=== PATIENT | female | born 1935 | race African-American/Black ===

== ENCOUNTER 2023-04-23 03:50 | Emergency (ER) | payer MEDICARE, MEDICAID ==
[~2023-04-23] VITALS: Ht 170.2 cm; Wt 70.0 kg
[~2023-04-23 03:50] MED LIST: APIX5TAB PO; DILT60TA35 PO
[2023-04-23 03:57] VITALS: O2SAT 100
[2023-04-23] MEDS ORDERED: CARBAMIDE PEROXIDE 6.5% OTIC SOLN 15ML EACH EAR ONE (05:45)
[2023-04-23] MEDS ORDERED: IBUPROFEN 600MG TABLET PO ONE (05:45)
[2023-04-23] MEDS ORDERED: CARB-173 EACH EAR (07:31)
[2023-04-23] MEDS ORDERED: IBUP-2029 MT (07:31)
[2023-04-23 08:53] VITALS: BP 128/86; PULSE 79; RESP 20; TEMP 98.7
== END 2023-04-23 08:55 | disposition home or self-care (01) ==
LOC: ER 03:50
DX: S42.301A Unspecified fracture of shaft of humerus, right arm, initial encounter for closed fracture (principal); I10 Essential (primary) hypertension; H61.21 Impacted cerumen, right ear; X58.XXXA Exposure to other specified factors, initial encounter; Y93.89 Activity, other specified; Y92.89 Other specified places as the place of occurrence of the external cause; Y99.8 Other external cause status
CPT/HCPCS: 73060; 93971; 99284; A4565

== ENCOUNTER 2023-06-19 05:51 | Emergency (ER) | payer MEDICARE, MEDICAID ==
[~2023-06-19] VITALS: Ht 171.4 cm; Wt 70.4 kg
[~2023-06-19 05:51] MED LIST changes: +CARB-173 EACH EAR; +IBUP-2029 MT
[2023-06-19 06:00] VITALS: BP 168/83; O2SAT 100
[2023-06-19] MEDS ORDERED: ACETAMINOPHEN 325MG TABLET PO ONE (08:15)
[2023-06-19 09:18] VITALS: PULSE 82; RESP 16; TEMP 97.7
== END 2023-06-19 09:18 | disposition home or self-care (01) ==
LOC: ER 05:51
DX: M25.511 Pain in right shoulder (principal); M25.512 Pain in left shoulder; I10 Essential (primary) hypertension
CPT/HCPCS: 73030; 99283

== ENCOUNTER 2024-05-27 08:16 | Emergency (ER) | payer MEDICARE, MEDICAID ==
[~2024-05-27] VITALS: Ht 162.6 cm; Wt 61.0 kg
[~2024-05-27 08:16] MED LIST changes: -CARB-173 EACH EAR; +DEBROX EACH EAR
[2024-05-27 08:21] VITALS: BP 192/61; PULSE 71; RESP 16; TEMP 97.9; O2SAT 98
[2024-05-27] MEDS ORDERED: LORAZEPAM 0.5MG TABLET PO ONE (09:00)
[2024-05-27 09:29] LABS: CHLORIDE 110 mEq/L (98-107); POTASSIUM 3.7 mEq/L (3.5-5.1); SODIUM 141 mEq/L (136-145)
[2024-05-27 09:30] LABS: CARBON DIOXIDE 25 mEq/L (21-32)
[2024-05-27 09:31] LABS: BASOPHILS % 0.4 % (0.0-2.0); CALCIUM 9.2 mg/dL (8.7-10.4); EOSINOPHILS % 2.6 % (0.0-5.0); HEMATOCRIT. 36.6 % (36.0-48.0); HEMOGLOBIN. 11.9 g/dL (12.0-16.0); INR 1.1; LYMPHOCYTES % 25.7 % (20.0-50.0); MEAN CORPUSCULAR HEMOGLOBIN 29.2 pg (28.0-32.0); MEAN CORPUSCULAR HGB CONC 32.4 g/dL (31.0-37.0); MEAN PLATELET VOLUME 9.2 fl (7.4-10.4); MONOCYTES % 8.6 % (2.0-8.0); NEUTROPHILS % 62.7 % (40.0-76.0); PLATELET 114 x1000/uL (130-400); RED BLOOD CELL COUNT 4.07 mill/uL (4.2-5.4); WHITE BLOOD COUNT 3.9 x1000/uL (4.5-11.0)
[2024-05-27 09:35] LABS: CREATININE 0.8 mg/dL (0.6-1.0); GLUCOSE 91 mg/dL (70-105)
[2024-05-27 09:36] LABS: TROPONIN I HIGH SENSITIVITY 19 ng/L (3.0-34); UREA NITROGEN BLOOD 15 mg/dL (9-23)
[2024-05-27 09:37] LABS: ALANINE AMINOTRANSFERASE 19 IU/L (10-49); ALBUMIN 3.5 g/dL (3.2-4.8); ASPARTATE AMINOTRANSFERASE 33 IU/L (<34)
[2024-05-27 09:38] LABS: BILIRUBIN DIRECT 0.3 mg/dL (<=3.0); PROTEIN TOTAL 7.1 g/dL (6.0-8.3)
[2024-05-27] MEDS: LORAZEPAM 0.5MG TABLET PO NR (10:49)
[2024-05-27 11:13] LABS: TROPONIN I HIGH SENSITIVITY 17 ng/L (3.0-34)
== END 2024-05-27 15:15 | disposition home or self-care (01) ==
LOC: ER 08:29
DX: R10.12 Left upper quadrant pain (principal); I10 Essential (primary) hypertension
CPT/HCPCS: 36415; 71250; 74176; 80048; 80076; 83880; 84484; 85025; 93005; 99284

== ENCOUNTER 2024-05-28 07:01 | Inpatient (IN) | payer MEDICARE, MEDICAID ==
[~2024-05-28] VITALS: Ht 160 cm; Wt 67.6 kg
[2024-05-28 07:12] VITALS: O2SAT 98
[2024-05-28] MEDS: MORPHINE SULFATE 2 MG/ML INJ (NOT FOR IM USE) IV ONE (07:52)
[2024-05-28 08:06] LABS: CHLORIDE 111 mEq/L (98-107); POTASSIUM 3.4 mEq/L (3.5-5.1); SODIUM 143 mEq/L (136-145)
[2024-05-28 08:07] LABS: CALCIUM 9.4 mg/dL (8.7-10.4); CARBON DIOXIDE 25 mEq/L (21-32)
[2024-05-28 08:12] LABS: BASOPHILS % 0.3 % (0.0-2.0); CREATININE 0.9 mg/dL (0.6-1.0); EOSINOPHILS % 1.7 % (0.0-5.0); GLUCOSE 80 mg/dL (70-105); HEMATOCRIT. 38.1 % (36.0-48.0); HEMOGLOBIN. 12.5 g/dL (12.0-16.0); LYMPHOCYTES % 32.6 % (20.0-50.0); MEAN CORPUSCULAR HEMOGLOBIN 29.3 pg (28.0-32.0); MEAN CORPUSCULAR HGB CONC 32.9 g/dL (31.0-37.0); MEAN CORPUSCULAR VOLUME 89.3 fL (81.0-99.0); MEAN PLATELET VOLUME 9.3 fl (7.4-10.4); MONOCYTES % 8.9 % (2.0-8.0); NEUTROPHILS % 56.5 % (40.0-76.0); PLATELET 127 x1000/uL (130-400); RED BLOOD CELL COUNT 4.27 mill/uL (4.2-5.4); RED CELL DISTRIBUTION WIDTH 14.7 % (11.6-14.6); UREA NITROGEN BLOOD 19 mg/dL (9-23); WHITE BLOOD COUNT 4.2 x1000/uL (4.5-11.0)
[2024-05-28 08:13] LABS: TROPONIN I HIGH SENSITIVITY 15 ng/L (3.0-34)
[2024-05-28 08:14] LABS: ALANINE AMINOTRANSFERASE 18 IU/L (10-49); ALBUMIN 3.9 g/dL (3.2-4.8); ASPARTATE AMINOTRANSFERASE 37 IU/L (<34); BILIRUBIN DIRECT 0.4 mg/dL (<=3.0); BILIRUBIN TOTAL 1.2 mg/dL (0.1-1.0); PROTEIN TOTAL 7.5 g/dL (6.0-8.3)
[2024-05-28 08:34] LABS: INR 1.1; PROTHROMBIN TIME 11.9 sec (9.6-11.0)
[2024-05-28] MEDS: NITROGLYCERIN OINT 1GM/INCH UDPKT TD ONE (10:15)
[2024-05-28 10:25] LABS: TROPONIN I HIGH SENSITIVITY 13 ng/L (3.0-34)
[2024-05-28] MEDS: HYDRALAZINE 20MG/ML VIAL IV ONE (11:10)
[2024-05-28 11:50] LABS: CLARITY URINE CLEAR (CLEAR); COLOR URINE YELLOW (YELLOW); GLUCOSE URINE NEGATIVE (NEGATIVE); KETONES URINE TRACE (NEGATIVE); LEUKOCYTE ESTERASE URINE NEGATIVE (NEGATIVE); NITRITE URINE NEGATIVE (NEGATIVE); OCCULT BLOOD URINE NEGATIVE (NEGATIVE); PROTEIN URINE NEGATIVE (NEGATIVE); SPECIFIC GRAVITY URINE 1.049 (1.005-1.030)
[2024-05-28] MEDS ORDERED: ONDANSETRON HCL 4MG/2ML INJ IV PRN (12:15)
[2024-05-28] MEDS ORDERED: LORAZEPAM 0.5MG TABLET PO PRN (12:15)
[2024-05-28] MEDS ORDERED: DOCUSATE SODIUM 100MG CAPSULE PO PRN (12:15)
[2024-05-28] MEDS ORDERED: GUAIFENESIN 200MG/10ML SUGAR FREE UDC PO PRN (12:15)
[2024-05-28] MEDS ORDERED: CLONIDINE 0.1MG TABLET PO PRN (12:15)
[2024-05-28] MEDS ORDERED: IPRATROPIUM/ALBUTEROL 0.5-3(2.5)MG/3ML NEB HHN PRN (12:15)
[2024-05-28] MEDS ORDERED: ENOXAPARIN 40MG/0.4ML SYR SUBCUT SCH (12:15)
[2024-05-28] MEDS ORDERED: ACETAMINOPHEN 325MG TABLET PO PRN ×2 (12:15)
[2024-05-28] MEDS: POTASSIUM CHLORIDE 20MEQ/PACKET PO NR (13:00)
[2024-05-28] MEDS: FUROSEMIDE 40MG/4ML VIAL IVP NR (13:00)
[2024-05-28] MEDS: ENOXAPARIN 80MG/0.8ML SYR SUBCUT SCH (14:40)
[2024-05-28] MEDS: METOPROLOL TARTRATE 25MG TABLET PO SCH (16:14)
[2024-05-28] MEDS ORDERED: AMLODIPINE 5MG TABLET PO SCH (16:30)
[2024-05-28] MEDS ORDERED: FUROSEMIDE 40MG/4ML VIAL IVP SCH (17:15)
[2024-05-28] MEDS: CLOPIDOGREL 75MG TABLET PO NR (17:15)
[2024-05-28] MEDS: ASPIRIN 325MG EC TABLET PO NR (17:15)
[2024-05-28 17:50] LABS: BG BASE EXCESS -0.6 mmol/L (-2.0-3.0); BG CARBOXYHEMOGLOBIN 0.3 % (0.5-1.5); BG HCO3 ACT 23.5 mmol/L (21.0-28.0); BG OXYHEMOGLOBIN 96.7 % (94.0-98.0); BG PCO2 37.1 mmHg (32.0-45.0); BG PO2 87.5 mmHg (83.0-108.0); BG SAMPLE SITE RIGHT RADIAL; BG TOTAL HEMOGLOBIN 12.5 g/dL (12.0-16.0); BG VENT MODE ROOM AIR
[2024-05-28 17:57] VITALS: O2SAT 98
[2024-05-28 18:06] VITALS: BP 160/84; PULSE 85; RESP 18; TEMP 36.78072
[2024-05-28] MEDS ORDERED: NICARDIPINE 40MG/200ML PREMIX 200 ML IV PRN (18:15)
[2024-05-28 18:49] LABS: BASOPHILS % 0.3 % (0.0-2.0); EOSINOPHILS % 0.8 % (0.0-5.0); HEMATOCRIT. 38.8 % (36.0-48.0); HEMOGLOBIN. 12.8 g/dL (12.0-16.0); LYMPHOCYTES % 23.7 % (20.0-50.0); MEAN CORPUSCULAR HEMOGLOBIN 29.6 pg (28.0-32.0); MEAN CORPUSCULAR HGB CONC 32.9 g/dL (31.0-37.0); MEAN CORPUSCULAR VOLUME 90.1 fL (81.0-99.0); MEAN PLATELET VOLUME 9.9 fl (7.4-10.4); MONOCYTES % 10.7 % (2.0-8.0); NEUTROPHILS % 64.5 % (40.0-76.0); PLATELET 123 x1000/uL (130-400); RED BLOOD CELL COUNT 4.31 mill/uL (4.2-5.4); WHITE BLOOD COUNT 6.5 x1000/uL (4.5-11.0)
[2024-05-28 18:51] LABS: CALCIUM 9.1 mg/dL (8.7-10.4); CARBON DIOXIDE 22 mEq/L (21-32); CHLORIDE 108 mEq/L (98-107); POTASSIUM 3.7 mEq/L (3.5-5.1); SODIUM 138 mEq/L (136-145)
[2024-05-28 18:56] LABS: CREATININE 0.9 mg/dL (0.6-1.0); GLUCOSE 87 mg/dL (70-105); UREA NITROGEN BLOOD 13 mg/dL (9-23)
[2024-05-28 19:03] LABS: FOLIC ACID (FOLATE) SERUM 12.72 ng/mL (>5.38)
[2024-05-28 19:04] LABS: T4 FREE 1.25 ng/dL (0.89-1.76); THYROID STIMULATING HORMONE 2.58 uIU/mL (0.55-4.78); VITAMIN B12 SERUM 368 pg/mL (211-911)
[2024-05-28 19:37] LABS: D-DIMER 2.12 mg/L FEU (<0.50); INR 1.2; PROTHROMBIN TIME 12.7 sec (9.6-11.0)
[2024-05-28] MEDS ORDERED: ATORVASTATIN CALCIUM 40MG TABLET PO SCH (21:00)
[2024-05-28] MEDS ORDERED: METOPROLOL TARTRATE 25MG TABLET PO SCH (21:00)
[2024-05-28] MEDS ORDERED: IOHEXOL-300 100 ML BOTTLE ONE (23:22)
[2024-05-29] MEDS ORDERED: ASPIRIN 81MG EC TABLET PO SCH (09:00)
[2024-05-29] MEDS ORDERED: CLOPIDOGREL 75MG TABLET PO SCH (09:00)
== END 2024-05-28 20:40 | disposition short-term general hospital (02) | DRG 64 ==
LOC: ER 07:24 → EDBEDREQ 10:41 → 5WST 10:56 → MICUSO 18:23
PROVIDERS: ADMIT Internal Medicine; ATTEND Internal Medicine
DX: I63.411 Cerebral infarction due to embolism of right middle cerebral artery (principal); I50.41 Acute combined systolic (congestive) and diastolic (congestive) heart failure; E87.6 Hypokalemia; I16.0 Hypertensive urgency; I11.0 Hypertensive heart disease with heart failure; I48.91 Unspecified atrial fibrillation; R29.721 NIHSS score 21; Z79.01 Long term (current) use of anticoagulants
CPT/HCPCS: 36415; 36600; 70496; 70498; 71045; 71250; 74176; 74177; 80048; 80061; 80076; 81003; 82040; 82375; 82607; 82746; 82805; 82962; 83036; 83880; 84439; 84443; 84484; 85025; 85379; 93005; 99284; 99291; J0360; J1650; J1940; J2270; Q9967